=== PATIENT | female | born 1955 | race Caucasian/White ===

== ENCOUNTER 2017-09-14 10:02 | Inpatient (IN) | payer MEDICARE, SELFPAY | END 2017-09-15 10:59 | disposition short-term general hospital (02) | DRG 308 | PROVIDERS: Admitting Provider Internal Medicine Adolescent Medicine; Emergency Provider Emergency Medicine; Family Provider Family Medicine; Visit Provider Internal Medicine Adolescent Medicine | DX: I48.91 Unspecified atrial fibrillation (principal); J18.9 Pneumonia, unspecified organism; I50.9 Heart failure, unspecified; G81.90 Hemiplegia, unspecified affecting unspecified side; Y95 Nosocomial condition; I10 Essential (primary) hypertension | CPT/HCPCS: 70450; 71010; 71250; 80048; 80053; 81001; 82550; 82553; 83605; 83880; 84439; 84443; 84484; 85025; 85610; 85730; 87040; 87077; 87086; 87088; 87186; 93005; 93041; 96365; 96375; 99285; J1956; J2405 ==

== ENCOUNTER 2017-11-04 15:04 | Emergency (ER) | payer MEDICARE, SELFPAY ==
[2017-11-04 15:10] VITALS: BP 110/72; PULSE 104; RESP 20; TEMP 36.4; O2SAT 96; BMI 31.1
--- NOTE | 2017-11-04 15:27 | CT_ITS ---
CT abdomen pelvis w con CLINICAL INDICATION: Right lower quadrant pain, multiple sclerosis ITS.REASON: rlq pain ORDERING PHYSICIAN: Royal Benton MD PATIENT AGE: 62 years COMPARISON: 07/05/2014 TECHNIQUE: Axial images obtained with sagittal and coronal reformats. PROCEDURE: Oral Contrast: None IV Contrast: 75 mL's [id number]. FINDINGS: Small bilateral pleural effusions. Consolidation is present in both lower lobes left more so than right and may be due to pneumonia and/or volume loss. There is cardiomegaly. There is been prior median sternotomy. There is a large pericardial effusion along the inferior aspect of the hard causing the heart is decompressed somewhat superiorly. This effusion measures up to 6 cm in width. There is diffuse subcutaneous edema of the abdomen more extensive on the left and could be related to patient lying on her left side. Underlying contusion of the abdominal wall on the left is an additional consideration. Liver is somewhat smaller than expected with minimal irregularity of the border and somewhat coarse appearance suggesting cirrhosis. There is perihepatic fluid. Small amount of pericholecystic fluid is present. Mild splenomegaly at 16 cm. Adrenal glands are unremarkable. There is generalized ascites in the abdomen and pelvis. No hydronephrosis. There are multiple bilateral renal calculi with stones measuring up to 1 cm in the lower pole on the right and 5 mm in the lower pole on the left. There is a 1.9 cm mixed fat and soft tissue density lesion in the lower pole the right kidney consistent with an angiomyolipoma. There is mild mesenteric edema. The appendix is not clearly identified. There is a calcific density at the tip of the cecum measuring 11 mm and may represent an appendicolith or something the patient has ingested as a similar density is present in the rectum. There is fluid in this region as well. A Dilated appendix is not identified. If symptoms persists, consider repeating exam with oral contrast. A small appendix could be obscured by the underlying fluid in the pelvis. There is mild thickening of the presacral fat. There is mild thickening of the ascending colon suggesting colitis versus nondistention.. Prior vertebroplasty at L2 with compression changes of L2 slightly increased compared to the previous exam. IMPRESSION: 1. Large pericardial effusion along the inferior aspect of the heart compressing the heart superiorly 2. Suspect cirrhosis with splenomegaly and diffuse ascites with anasarca. Asymmetric soft tissue density is present in the left lateral abdominal wall and could be related to patient's positioning or even underlying hematoma. 3. The appendix is not clearly delineated. Hyperdensity noted of the cecum which could be due to something the patient has ingested versus an appendicolith. Consider follow-up exam with oral contrast the patient's symptoms persist 4. Possible colitis of the ascending colon
[2017-11-04 15:48] LABS: Basophils % 0.3 % (0.1-2.0); Eosinophils # 0.1 K/mm3 (0.0-0.4); Eosinophils % 1.4 % (0.1-12.0); Hematocrit 35.6 % (37.0-47.0); Hemoglobin 10.1 g/dL (12.2-16.2); Lymphocytes # 0.9 K/mm3 (0.7-4.5); Lymphocytes % 10.3 K/mm3 (10-50); Mean Corpuscular HGB Conc 28.3 g/dL (31.8-35.4); Mean Corpuscular Hemoglobin 21.7 pg (27.0-31.2); Mean Corpuscular Volume 76.9 fl (81-99); Mean Platelet Volume 7.2 fl (7.4-10.4); Monocytes # 0.5 K/mm3 (0.1-1.0); Monocytes % 5.6 % (1.7-9.3); Neutrophils # 6.9 K/mm3 (1.8-7.8); Neutrophils % 82.4 % (37.0-80.0); Platelet Count 352 K/mm3 (142-424); Red Blood Count 4.63 M/mm3 (4.20-5.40); Red Cell Distribution Width 16.9 % (11.5-17.5); White Blood Count 8.4 K/mm3 (4.8-10.8)
[2017-11-04 15:52] LABS: INR 1.79 (0.9-1.1); Prothrombin Time 19.4 seconds (9.4-11.8)
[2017-11-04 15:55] LABS: Alanine Aminotransferase 22 U/L (12-78); Albumin Level 2.8 gm/dL (3.4-5.0); Albumin/Globulin Ratio 0.8 (1.1-1.8); Alkaline Phosphatase 120 U/L (46-116); Amylase 52 U/L (25-125); Anion Gap 11.1 mEq/L (5-15); Aspartate Amino Transferase 18 U/L (15-37); Bilirubin,Total 0.6 mg/dL (0.2-1.0); Blood Urea Nitrogen 19 mg/dL (7-18); Calcium 8.7 mg/dL (8.5-10.1); Carbon Dioxide 34 mmol/L (21.0-32.0); Chloride 104 mmol/L (98-107); Creatinine Clearance Estimated 84 mL/min (0-300); Creatinine,Serum 1.14 mg/dL (0.55-1.02); Estimated Glomerular Filt Rate 48 ml/min (>60); GFR (African American) 58 ML/MIN (>60); Globulin 3.4 gm/dl (1.3-3.2); Glucose 103 mg/dL (74-106); Lipase 447 u/L (73-393); Potassium 4.1 mmoL/L (3.5-5.1); Sodium 145 mmol/L (136-145); Total Protein,Serum 6.2 gm/dL (6.4-8.2)
--- NOTE | 2017-11-04 17:20 | CT_ITS ---
CT abdomen pelvis wo con CLINICAL INDICATION: Right lower quadrant pain, study repeated with oral contrast to try visualize the appendix. ITS.REASON: RLQ abdominal pain ORDERING PHYSICIAN: Yogi Ko MD PATIENT AGE: 62 years COMPARISON: Prior exam from the same day TECHNIQUE: Axial images obtained with sagittal and coronal reformats. PROCEDURE: Oral Contrast: Gastroview IV Contrast: None . FINDINGS: Cardiomegaly with large bilateral effusions and compressive atelectatic changes. Large fluid collection once again noted along the inferior aspect of the heart and may be related to loculated pericardial effusion versus an atypical loculated pleural effusion. This is continuous with a left-sided pleural effusion. Echocardiography may be of further value. There is generalized anasarca with ascites No focal liver lesion. Minimal irregularity of the liver surface with mild splenomegaly and diffuse ascites suggesting cirrhosis. The gallbladder, pancreas, and adrenal glands are unremarkable. Right renal angiomyolipoma once again noted. No urinary tract obstruction. Oral contrast was utilized. Fluid density is again noted at the tip of the cecum. The previously noted hyperdensity at the tip of the cecum may be obscured by the contrast. There is an additional hyperdensity in the region of the sigmoid colon at the rectosigmoid region. The appendix is not clearly identified however, no thickened or dilated appendix is apparent. There has been a prior hysterectomy. There is thickening of presacral fat which may be due to patient's generalized anasarca. No other changes. IMPRESSION: 1. The appendix is not specifically identified. No change in the fluid collection at the tip of the cecum. However, no significant surrounding inflammatory changes are evident in this region. 2. Ascites, pleural effusions, and anasarca which may be sequela of congestive heart failure or cirrhosis. There is splenomegaly with some irregularity of the liver. 3. Prominent fluid collection along the inferior aspect of the heart contiguous with left-sided pleural effusion. This may be related to inferior extension and loculation of the left-sided effusion versus loculated pericardial effusion. Echocardiography may be of further value
[2017-11-04 17:33] LABS: Digoxin 1.43 ng/mL (1.15-2.56)
--- NOTE | 2017-11-04 17:48 | [facility].EDABDPAI ---
ED Disposition Condition on Discharge: Fair - Critical Care Critical Care Time: No Total Critical Care Time: 90 My critical care processes included: Assessment & monitoring of V/S, Initial and Re-exams, Data Review/Interpretation, Coordinating Care, Medication Orders and management, Documentation <ChristianaobiRoyal - Last Filed: 11/04/17 19:43> <Yogi Ko - Last Filed: 11/04/17 23:34> Clinical Impression: Colitis, RLQ abdominal pain, Anasarca, Pericardial effusion, Intracardiac thrombus, Subtherapeutic anticoagulation Disposition: Admitted As Inpatient Referrals: Provider,Referral, MD [Primary Care Provider] - Attestation: On 11/04/17, the high probability of a clinically significant, sudden or life threatening deterioration of the following system(s) required my full and direct attention, intervention and personal management. The time I documented below is in addition to time spent performing reported procedures but includes the following listed in this critical care notation. Medical Decision Making - Medical Records Medical records reviewed: Yes: I reviewed the patient's medical records. - Lab Data Lab results reviewed: Yes: I reviewed the patient's lab results. Result diagrams: 11/04/17 15:25 11/04/17 15:25 - CT Data CT Scan: Abdomen, Pelvis Time Received: 16:[address] Reviewed: Yes: I have reviewed the patient's CT results, I have viewed the radiologist's interpretation - Gaurav Inquiry Pt receiving controlled substance: No - Reevaluation(s) Time: 16:45 <SerenityRoyal Eduardo - Last Filed: 11/04/17 19:43> - Lab Data Result diagrams: 11/04/17 15:25 11/04/17 15:25 <Yogi Ko - Last Filed: 11/04/17 23:34> Vital Signs: 11/04/17 15:10 11/04/17 18:29 11/04/17 19:01 Temperature 97.5 F L Temperature Source Temporal Artery Scan Pulse Rate [Right Brachial] 104 H 113 H 127 H Respiratory Rate 20 18 Blood Pressure [Left Arm] 148/98 Blood Pressure [Right Arm] 110/72 119/76 Blood Pressure Mean [Left Arm] 114 Blood Pressure Mean [Right Arm] 84 90 Blood Pressure Source [Left Arm] Automatic Cuff Blood Pressure Source [Right Arm] Automatic Cuff Automatic Cuff Blood Pressure Position [Left Arm] Sitting Blood Pressure Position [Right Arm] Sitting Supine 02 Sat by Pulse Oximetry 96 95 92 L Oxygen Delivery Method Room Air Room Air Room Air - Lab Data Lab Results 11/04/17 15:25: WBC 8.4, RBC 4.63, Hgb 10.1 L, Hct 35.6 L, MCV 76.9 L, MCH 21.7 L, MCHC 28.3 L, RDW 16.9, Plt Count 352, MPV 7.2 L, Neut % (Auto) 82.4 H, Lymph % (Auto) 10.3, Appling % (Auto) 5.6, Eos % (Auto) 1.4, Baso % (Auto) 0.3, Neut # (Auto) 6.9, Lymph # (Auto) 0.9, Appling # (Auto) 0.5, Eos # (Auto) 0.1, Baso # (Auto) 0.0 11/04/17 15:25: Sodium 145, Potassium 4.1, Chloride 104, Carbon Dioxide 34 H, Anion Gap 11.1, BUN 19 H, Creatinine 1.14 H, Estimated Creat Clear 84, Estimated GFR 48 L, Est GFR ( Amer) 58 L, Glucose 103, Calcium 8.7, Total Bilirubin 0.6, AST 18, ALT 22, Alkaline Phosphatase 120 H, Total Protein 6.2 L, Albumin 2.8 L, Globulin 3.4 H, Albumin/Globulin Ratio 0.8 L, Amylase 52, Lipase 447 H 11/04/17 15:25: PT 19.4 H, INR 1.79 H 11/04/17 15:35: Digoxin 1.43 11/04/17 15:35: ESR 14 11/04/17 15:35: C-Reactive Protein 2.2 H 11/04/17 17:55: Lactic Acid 1.6 11/04/17 20:15: Urine Color Yellow, Urine Appearance Clear, Urine pH 7.5, Ur Specific Noble 1.010, Urine Protein Negative, Urine Glucose (UA) Negative, Urine Ketones Negative, Urine Blood 2+, Urine Nitrate Negative, Urine Bilirubin Negative, Urine Urobilinogen 0.2, Ur Leukocyte Esterase Negative, Urine RBC 20-50, Urine WBC 5-10, Ur Squamous Epith Cells Occasional, Urine Bacteria Trace, Hyaline Casts Occasional, Urine Yeast 3+ Orders (Tests/Meds): ED MEDICATIONS Discontinued Medications Generic Name Dose Route Start Last Admin Trade Name Freq PRN Reason Stop Dose Admin Diatrizoate Meglum/Diatrizoate Sod 30 ml 11/04/17 17:22 02
[2017-11-04 18:28] LABS: Lactic Acid 1.6 mmol/L (0.4-2.0)
[2017-11-04 18:29] VITALS: BP 119/76; PULSE 113; O2SAT 95
[2017-11-04 19:01] VITALS: BP 148/98; PULSE 127; RESP 18; O2SAT 92
--- NOTE | 2017-11-04 19:03 | PC.NURSE ---
PATIENT IS READY FOR CT ABD AT 2039. FAMILY AND PATIENT NOTIFIED WELL RADIOLGY.
[2017-11-04 20:20] LABS: Microscopic, Urine URINE MICROSCOPIC (MICROSCOPIC)
[2017-11-04 20:21] LABS: Appearance,Urine CLEAR (Clear); Bilirubin,Urine Negative (Negative); Blood, Urine 2+ (Negative); Color,Urine YELLOW (Yellow); Glucose,Urine (UA) Negative (Negative); Ketones,Urine Negative (Negative); Leukocyte Esterase,Urine Negative (Negative); Nitrate,Urine Negative (Negative); PH,Urine 7.5 (5.0-8.5); Protein,Urine Negative (Negative); Urobilinogen,Urine 0.2 EU/dl (0.2)
[2017-11-04 20:46] LABS: Bacteria,Urine Trace /lpf; Hyaline Casts,Urine Occasional #/lpf (0); RBC,Urine 20-50 #/hpf (0-3); Squamous Epithelial Cell,Urine Occasional #/hpf (0-5)
[2017-11-04 20:47] LABS: Yeast,Urine 3+ /lpf
[2017-11-04 22:33] LABS: C-Reactive Protein 2.2 mg/L (0.0-0.9)
[2017-11-04 23:13] LABS: Erythrocyte Sedimentation Rate 14 mm/hr (0-30)
[2017-11-05 00:08] VITALS: BP 114/71; PULSE 106; RESP 18; TEMP 36.4; O2SAT 98
== END 2017-11-05 00:28 | disposition home or self-care (01) ==
PROVIDERS: Emergency Medicine; Emergency Provider Emergency Medicine; Family Provider Family Medicine
DX: R10.31 Right lower quadrant pain (principal); I48.92 Unspecified atrial flutter; Z79.01 Long term (current) use of anticoagulants; Z95.2 Presence of prosthetic heart valve; G35 Multiple sclerosis; Z88.0 Allergy status to penicillin; Z88.2 Allergy status to sulfonamides; Z79.82 Long term (current) use of aspirin; Z79.899 Other long term (current) drug therapy
CPT/HCPCS: 36415; 74176; 74177; 80053; 80162; 81001; 82150; 83605; 83690; 85025; 85610; 85651; 86140; 87040; 96365; 96367; 96375; 96376; 99283; J1956; J2405; Q9967

== ENCOUNTER → 2018-04-21 11:40 | Outpatient (REF) | payer MEDICARE, SELFPAY | LOC: LAB.CARL 11:40 | PROVIDERS: Visit Provider Family Medicine | DX: N39.0 Urinary tract infection, site not specified (principal) ==

== ENCOUNTER → 2018-04-22 09:11 | Outpatient (CLI) | payer MEDICARE, SELFPAY ==
[2018-04-22 14:44] LABS: Basophils % 0.3 % (0.1-2.0); Eosinophils # 0.1 K/mm3 (0.0-0.4); Eosinophils % 2.1 % (0.1-12.0); Hematocrit 32.2 % (37.0-47.0); Hemoglobin 9.1 g/dL (12.2-16.2); Lymphocytes # 0.2 K/mm3 (0.7-4.5); Lymphocytes % 4.1 K/mm3 (10-50); Mean Corpuscular HGB Conc 28.3 g/dL (31.8-35.4); Mean Corpuscular Hemoglobin 21.3 pg (27.0-31.2); Mean Corpuscular Volume 75.4 fl (81-99); Mean Platelet Volume 7.8 fl (7.4-10.4); Monocytes # 0.2 K/mm3 (0.1-1.0); Monocytes % 4.7 % (1.7-9.3); Neutrophils # 4.4 K/mm3 (1.8-7.8); Neutrophils % 88.7 % (37.0-80.0); Platelet Count 282 K/mm3 (142-424); Red Blood Count 4.26 M/mm3 (4.20-5.40); White Blood Count 4.9 K/mm3 (4.8-10.8)
[2018-04-22 14:49] LABS: MANUAL DIFFERENTIAL MANUAL DIFFERENTIAL (MANUAL DIFF)
[2018-04-22 14:51] LABS: Alanine Aminotransferase 13 U/L (12-78); Albumin Level 3.1 gm/dL (3.4-5.0); Albumin/Globulin Ratio 0.8 (1.1-1.8); Alkaline Phosphatase 91 U/L (46-116); Anion Gap 17.9 mEq/L (5-15); Aspartate Amino Transferase 10 U/L (15-37); Bilirubin,Total 0.5 mg/dL (0.2-1.0); Blood Urea Nitrogen 14 mg/dL (7-18); Calcium 8.7 mg/dL (8.5-10.1); Carbon Dioxide 25 mmol/L (21.0-32.0); Chloride 105 mmol/L (98-107); Chol/HDL Ratio 2.6 (1-3.5); Cholesterol 153 mg/dL (140-200); Creatinine,Serum 0.97 mg/dL (0.55-1.02); Estimated Glomerular Filt Rate 58 ml/min (>60); Free T4 (Free Thyroxine) 0.42 ng/dl (0.76-1.46); GFR (African American) 70 ML/MIN (>60); Globulin 3.7 gm/dl (1.3-3.2); Glucose 70 mg/dL (74-106); HDL Cholesterol 58 mg/dL (29-89); LDL Cholesterol 71 mg/dL (0-130); Potassium 3.9 mmoL/L (3.5-5.1); Sodium 144 mmol/L (136-145); Thyroid Stimulating Hormone 79.51 uIU/ml (0.358-3.740); Total Protein,Serum 6.8 gm/dL (6.4-8.2); Triglycerides 119 mg/dL (30-200); VLDL Cholesterol 24 mg/dL (0-40)
[2018-04-22 16:06] LABS: Eosinophils % 1 % (0-3); Lymphocytes % 4 % (10-50); Monocytes % 3 % (2-9); Neutrophils % 92 % (42-76); Total Cells Counted 100
[2018-04-22 16:07] LABS: Hypochromasia 3+; Microcytosis 1+; Platelet Estimate Normal
[2018-04-23 14:53] LABS: Vitamin B12 642 pg/mL (232-1245)
== END ==
PROVIDERS: Visit Provider Family Medicine
DX: N39.0 Urinary tract infection, site not specified (principal); R53.83 Other fatigue; E78.2 Mixed hyperlipidemia
CPT/HCPCS: 36415; 80053; 80061; 82607; 82652; 84439; 84443; 85007; 85025

== ENCOUNTER 2018-05-24 10:00 | Outpatient (RCR) | payer MEDICARE, SELFPAY | END 2018-06-29 10:38 | disposition home or self-care (01) | LOC: PT 10:00 | PROVIDERS: Family Provider Family Medicine; Visit Provider Family Medicine | DX: G35 Multiple sclerosis (principal) | CPT/HCPCS: 97110; 97163 ==

== ENCOUNTER → 2018-05-25 16:25 | Outpatient (REF) | payer MEDICARE, SELFPAY | LOC: LAB 16:25 | PROVIDERS: Visit Provider Urology | DX: R31.9 Hematuria, unspecified (principal) | CPT/HCPCS: 87086; 87088; 87186 ==